=== PATIENT | female | born 1945 | race Caucasian/White ===

== ENCOUNTER 2017-07-07 12:08 | Inpatient (IN) | payer MEDICARE, MEDICAID, OTHER ==
[2017-07-07] MEDS: SOD CHLORIDE 0.9% 1,000 ML IV (14:45)
[2017-07-07 14:53] LABS: ADD MAN DIFF? NO
[2017-07-07 14:56] LABS: ABNORMAL IP MESSAGE 1; BASOPHILS % 0.3 % (0.0-2.0); EOSINOPHILS # 0.1 10^3/ul (0.0-0.5); EOSINOPHILS % 0.4 % (0.0-7.0); HEMATOCRIT 35.8 % (37.0-47.0); LYMPHOCYTES # 1.7 10^3/ul (0.8-2.9); LYMPHOCYTES % 13.1 % (15.0-51.0); MEAN CORPUSCULAR HEMOGLOBIN 29.8 pg (29.0-33.0); MEAN CORPUSCULAR HGB CONC 33.5 g/dl (32.0-37.0); MEAN CORPUSCULAR VOLUME 88.8 fl (82.0-101.0); MEAN PLATELET VOLUME 9.6 fl (7.4-10.4); MONOCYTE # 1.1 10^3/ul (0.3-0.9); MONOCYTES % 8.7 % (0.0-11.0); NEUTROPHIL # 8.4 10^3/ul (1.6-7.5); NEUTROPHILS % 64.8 % (39.0-77.0); NUCLEATED RED BLOOD CELLS # 0.1 10^3/ul (0.0-0.0); NUCLEATED RED BLOOD CELLS% 0.4 /100WBC (0.0-0.0); PLATELET COUNT 357 10^3/UL (140-415); RED BLOOD COUNT 4.03 10^6/ul (4.20-5.40); RED CELL DISTRIBUTION WIDTH 14.3 % (11.5-14.5)
[2017-07-07 15:05] LABS: ADD UMIC YES; UR ASCORBIC ACID NEGATIVE (NEGATIVE); UR BILIRUBIN (Dip) NEGATIVE (NEGATIVE); UR BLOOD (Dip) NEGATIVE (NEGATIVE); UR CLARITY TURBID (CLEAR); UR COLOR AMBER (YELLOW); UR GLUCOSE (Dip) NEGATIVE (NEGATIVE); UR KETONES (Dip) TRACE mg/dL (NEGATIVE); UR LEUKOCYTE ESTERASE (Dip) NEGATIVE Leu/ul (NEGATIVE); UR NITRITE (Dip) NEGATIVE (NEGATIVE); UR RBC 0 /HPF (0-5); UR SPECIFIC GRAVITY (Dip) 1.014 (1.003-1.030); UR TOTAL PROTEIN (Dip) NEGATIVE (NEGATIVE); UR UROBILINOGEN (Dip) NEGATIVE (NEGATIVE); UR WBC 16 /HPF (0-5)
[2017-07-07 15:10] LABS: INR 0.97
[2017-07-07] MEDS: ONDANSETRON 4 MG INJ IV ×2 (15:10→17:08)
[2017-07-07] MEDS: morphine 4 MG/ML VIAL IV (15:10)
[2017-07-07 15:11] LABS: PARTIAL THROMBOPLASTIN TIME 25.8 Sec (25.0-35.0)
[2017-07-07 15:12] LABS: ALANINE AMINOTRANSFERASE 23 IU/L (13-69); ALBUMIN 3.3 g/dl (3.3-4.9); ALKALINE PHOSPHATASE 96 IU/L (42-121); AMYLASE 63 U/L (11-123); ANION GAP 13 (8-16); ASPARTATE AMINO TRANSFERASE 19 IU/L (15-46); BILIRUBIN,INDIRECT 0.3 mg/dl (0-1.1); BILIRUBIN,TOTAL 0.3 mg/dl (0.2-1.3); BLOOD UREA NITROGEN 15 mg/dl (7-20); CALCIUM 9.7 mg/dl (8.4-10.2); CARBON DIOXIDE 26 mmol/L (21-31); CHLORIDE 103 mmol/L (97-110); GLUCOSE 109 mg/dl (70-220); LIPASE 125 U/L (23-300); SODIUM 138 mmol/L (135-144); TOTAL PROTEIN 7.4 g/dl (6.1-8.1)
[2017-07-07 15:26] LABS: TROPONIN-I < 0.012 ng/ml (0.00-0.12)
[2017-07-07] MEDS: CEFTRIAXONE 1 GM/50 ML (PMX) 50 ML IVPB (15:55)
[2017-07-07] MEDS: SOD CHLORIDE 0.9% 100 ML (16:54)
[2017-07-07] MEDS: IOHEXOL 300MG/ML 150 ML BTL (16:54)
[2017-07-07] MEDS: HYDROmorphONE 1 MG/ML SYG IV (17:08)
[2017-07-07] MEDS ORDERED: ONDANSETRON 4 MG INJ IV (17:30)
[2017-07-07] MEDS ORDERED: ACETAMINOPHEN 325 MG TAB PO ×2 (17:30→20:00)
[2017-07-07 19:11] LABS: CANCER ANTIGEN 125 52.3 U/ml (0.0-35.0)
[2017-07-07] MEDS ORDERED: VANCOMYCIN IV PER PHARMACY XX (20:00)
[2017-07-07] MEDS: morphine LIQ (10 MG/5 ML) CUP PO (22:36)
[2017-07-07] MEDS: DEXTROSE 5%-0.45% NACL 1,000 ML IV (22:38)
[2017-07-07] MEDS: VANCOMYCIN 1.75 GM in NS 500 ML IVPB (23:09)
[2017-07-07] MEDS: PIPER-TAZO 3.375 GM IV (PMX) 50 ML IVPB (23:43)
[2017-07-08] MEDS: HYDROmorphONE 0.5 MG/0.5 ML SYG IV ×3 (02:00→13:57)
[2017-07-08 05:13] LABS: ADD MAN DIFF? NO
[2017-07-08 05:17] LABS: WHITE BLOOD COUNT 12.3 10^3/ul (4.8-10.8)
[2017-07-08 05:17] LABS: ABNORMAL IP MESSAGE 1; BASOPHIL # 0.1 10^3/ul (0.0-0.1); BASOPHILS % 0.8 % (0.0-2.0); EOSINOPHILS # 0.1 10^3/ul (0.0-0.5); EOSINOPHILS % 1.1 % (0.0-7.0); HEMATOCRIT 29.4 % (37.0-47.0); HEMOGLOBIN 9.9 g/dl (12.0-16.0); LYMPHOCYTES # 1.9 10^3/ul (0.8-2.9); MEAN CORPUSCULAR HEMOGLOBIN 30.1 pg (29.0-33.0); MEAN CORPUSCULAR HGB CONC 33.7 g/dl (32.0-37.0); MEAN CORPUSCULAR VOLUME 89.4 fl (82.0-101.0); MONOCYTE # 1.3 10^3/ul (0.3-0.9); MONOCYTES % 10.3 % (0.0-11.0); NEUTROPHIL # 7.7 10^3/ul (1.6-7.5); NEUTROPHILS % 62.5 % (39.0-77.0); NUCLEATED RED BLOOD CELLS% 0.2 /100WBC (0.0-0.0); PLATELET COUNT 289 10^3/UL (140-415); RED BLOOD COUNT 3.29 10^6/ul (4.20-5.40); RED CELL DISTRIBUTION WIDTH 14.5 % (11.5-14.5)
[2017-07-08 05:40] LABS: ANION GAP 9 (8-16); BLOOD UREA NITROGEN 13 mg/dl (7-20); CALCIUM 8.6 mg/dl (8.4-10.2); CARBON DIOXIDE 24 mmol/L (21-31); CHLORIDE 108 mmol/L (97-110); CREATININE 0.71 mg/dl (0.44-1.00); GLUCOSE 105 mg/dl (70-220); POTASSIUM 3.5 mmol/L (3.5-5.1); SODIUM 137 mmol/L (135-144)
[2017-07-08 05:48] LABS: POSITIVE DIFF @See below
[2017-07-08] MEDS: morphine LIQ (10 MG/5 ML) CUP PO ×2 (05:56→23:30)
[2017-07-08] MEDS: PIPER-TAZO 3.375 GM IV (PMX) 50 ML IVPB ×4 (05:58→23:30)
[2017-07-08] MEDS: PANTOPRAZOLE (EC) 40 MG TAB PO (05:59)
[2017-07-08] MEDS: ONDANSETRON 4 MG INJ IV (07:51)
[2017-07-08] MEDS: DEXTROSE 5%-0.45% NACL 1,000 ML IV (11:39)
[2017-07-08] MEDS ORDERED: VANCOMYCIN 750 MG in DEXTROSE 5% 150 ML IVPB (12:00)
[2017-07-08] MEDS: VANCOMYCIN 750 MG in DEXTROSE 5% 150 ML IVPB (14:30)
[2017-07-08 15:00] LABS: RETICULOCYTE RBC 3.66
[2017-07-08 15:00] LABS: RETICULOCYTE COUNT # 0.104 X10^6 (0.020-0.110); RETICULOCYTE COUNT % 2.9 % (0.5-1.5)
[2017-07-08 15:24] LABS: IRON 11 ug/dl (35-150)
[2017-07-08 15:36] LABS: % IRON SATURATION 4 % SAT (22-52); TOTAL IRON BINDING CAPACITY 262 ug/dl (241-421)
[2017-07-08] MEDS: IOHEXOL 300MG/ML 150 ML BTL (18:45)
[2017-07-08] MEDS: SOD CHLORIDE 0.9% 100 ML (18:45)
[2017-07-09] MEDS: VANCOMYCIN 750 MG in DEXTROSE 5% 150 ML IVPB ×2 (01:42→15:43)
[2017-07-09] MEDS: DEXTROSE 5%-0.45% NACL 1,000 ML IV ×2 (05:20→22:00)
[2017-07-09] MEDS: PIPER-TAZO 3.375 GM IV (PMX) 50 ML IVPB ×4 (05:37→23:22)
[2017-07-09] MEDS: PANTOPRAZOLE (EC) 40 MG TAB PO (05:37)
[2017-07-09 05:52] LABS: WHITE BLOOD COUNT 11.1 10^3/ul (4.8-10.8)
[2017-07-09 05:52] LABS: ABNORMAL IP MESSAGE 1; HEMATOCRIT 30.2 % (37.0-47.0); HEMOGLOBIN 9.8 g/dl (12.0-16.0); MEAN CORPUSCULAR HEMOGLOBIN 29.8 pg (29.0-33.0); MEAN CORPUSCULAR HGB CONC 32.5 g/dl (32.0-37.0); MEAN CORPUSCULAR VOLUME 91.8 fl (82.0-101.0); MEAN PLATELET VOLUME 9.7 fl (7.4-10.4); PLATELET COUNT 388 10^3/UL (140-415); RED BLOOD COUNT 3.29 10^6/ul (4.20-5.40); RED CELL DISTRIBUTION WIDTH 14.9 % (11.5-14.5)
[2017-07-09 05:57] LABS: ADD MAN DIFF? YES; POSITIVE DIFF @See below
[2017-07-09] MEDS: morphine LIQ (10 MG/5 ML) CUP PO ×3 (06:15→17:51)
[2017-07-09 06:52] LABS: ANION GAP 11 (8-16); BLOOD UREA NITROGEN 15 mg/dl (7-20); CALCIUM 8.7 mg/dl (8.4-10.2); CARBON DIOXIDE 25 mmol/L (21-31); CHLORIDE 104 mmol/L (97-110); CREATININE 0.81 mg/dl (0.44-1.00); GLUCOSE 87 mg/dl (70-220); SODIUM 136 mmol/L (135-144)
[2017-07-09 09:23] LABS: LACTATE DEHYDROGENASE 531 IU/L (313-618)
[2017-07-09] MEDS: HYDROmorphONE 0.5 MG/0.5 ML SYG IV ×3 (09:28→21:50)
[2017-07-09 09:48] LABS: ANISOCYTOSIS 1+ (0-0); BAND NEUTROPHILS #M 0.2 10^3/ul (0.0-0.6); BAND NEUTROPHILS % (M) 2 % (0-4); EOSINOPHILS % (M) 4 % (0-7); GIANT THROMBO% (M) 3 % (0-0); LYMPHOCYTES #M 2.1 10^3/ul (0.8-2.9); LYMPHOCYTES % (M) 19 % (15-51); METAMYELOCYTES #M 0.1 10^3/ul (0.0-0.0); METAMYELOCYTES %M 1 % (0-0); MONOCYTE #M 0.9 10^3/ul (0.3-0.9); MONOCYTES % (M) 9 % (0-11); MYELOCYTES #M 0.2 10^3/ul (0.0-0.0); MYELOCYTES % (M) 2 % (0-0); PLATELET ESTIMATE NORMAL; POIKILOCYTOSIS 1+ (0-0); POLYCHROMASIA 3+ (0-0); REACTIVE LYMPHOCYTES #M 0.3 10^3/ul (0.0-0.0); REACTIVE LYMPHOCYTES% (M) 3 % (0-0); SEG NEUT #M 6.7 10^3/ul (1.7-7.5); SEGMENTED NEUTROPHILS (M) % 60 % (39-77); SMUDGE%M 4 % (0-0)
[2017-07-09 10:05] LABS: FERRITIN 33.2 ng/ml (11.1-264.0)
[2017-07-09 10:36] LABS: FOLATE 15.9 ng/ml (2.8-20.0)
[2017-07-09] MEDS: LIDOCAINE 1% (MPF) 5 ML VIAL (10:55)
[2017-07-09 15:09] LABS: VANCOMYCIN,TROUGH 14.8 ug/ml (10.0-20.0)
[2017-07-09 15:48] LABS: HIV 1&2 ANTIBODY NEGATIVE (NEGATIVE)
[2017-07-09] MEDS: SOD FERRIC GLUC COMPLX 125 MG in SOD CHLORIDE 0.9% 100 ML IVPB (23:22)
[2017-07-10] MEDS: VANCOMYCIN 750 MG in DEXTROSE 5% 150 ML IVPB ×2 (02:07→13:49)
[2017-07-10] MEDS: HYDROmorphONE 0.5 MG/0.5 ML SYG IV ×3 (04:17→20:39)
[2017-07-10] MEDS: PIPER-TAZO 3.375 GM IV (PMX) 50 ML IVPB ×3 (05:53→17:52)
[2017-07-10] MEDS: DEXTROSE 5%-0.45% NACL 1,000 ML IV (05:54)
[2017-07-10] MEDS: PANTOPRAZOLE (EC) 40 MG TAB PO (05:57)
[2017-07-10] MEDS: INFLUENZA VIRUS VACCINE 0.5 ML (DISPENSING) IM* (09:17)
[2017-07-10 09:21] LABS: OCCULT BLOOD STOOL POSITIVE (NEGATIVE)
[2017-07-10 14:36] LABS: HAPTOGLOBIN 339 mg/dL (43-212)
[2017-07-10] MEDS: SOD FERRIC GLUC COMPLX 125 MG in SOD CHLORIDE 0.9% 100 ML IVPB (22:01)
[2017-07-11] MEDS: PIPER-TAZO 3.375 GM IV (PMX) 50 ML IVPB ×5 (00:24→23:50)
[2017-07-11] MEDS: VANCOMYCIN 750 MG in DEXTROSE 5% 150 ML IVPB ×2 (01:06→14:13)
[2017-07-11] MEDS: HYDROmorphONE 0.5 MG/0.5 ML SYG IV ×4 (02:55→17:57)
[2017-07-11] MEDS: PANTOPRAZOLE (EC) 40 MG TAB PO (05:46)
[2017-07-11] MEDS: HYDROCODONE/APAP (5/325) TAB PO ×2 (05:51→12:48)
[2017-07-11] MEDS: morphine LIQ (10 MG/5 ML) CUP PO ×2 (15:45→20:03)
[2017-07-11] MEDS: SOD FERRIC GLUC COMPLX 125 MG in SOD CHLORIDE 0.9% 100 ML IVPB (21:16)
[2017-07-12] MEDS: VANCOMYCIN 750 MG in DEXTROSE 5% 150 ML IVPB ×2 (02:00→15:47)
[2017-07-12] MEDS: morphine LIQ (10 MG/5 ML) CUP PO ×2 (03:04→07:19)
[2017-07-12] MEDS: PIPER-TAZO 3.375 GM IV (PMX) 50 ML IVPB ×3 (05:22→17:57)
[2017-07-12] MEDS: PANTOPRAZOLE (EC) 40 MG TAB PO (05:26)
[2017-07-12 05:55] LABS: ADD MAN DIFF? NO
[2017-07-12 06:21] LABS: WHITE BLOOD COUNT 8.9 10^3/ul (4.8-10.8)
[2017-07-12 06:21] LABS: ABNORMAL IP MESSAGE 1; BASOPHIL # 0.1 10^3/ul (0.0-0.1); EOSINOPHILS # 0.2 10^3/ul (0.0-0.5); EOSINOPHILS % 1.7 % (0.0-7.0); HEMATOCRIT 28.4 % (37.0-47.0); HEMOGLOBIN 9.1 g/dl (12.0-16.0); LYMPHOCYTES # 1.9 10^3/ul (0.8-2.9); LYMPHOCYTES % 21.3 % (15.0-51.0); MEAN CORPUSCULAR HEMOGLOBIN 29.7 pg (29.0-33.0); MEAN CORPUSCULAR VOLUME 92.8 fl (82.0-101.0); MEAN PLATELET VOLUME 9.9 fl (7.4-10.4); MONOCYTE # 0.8 10^3/ul (0.3-0.9); MONOCYTES % 8.8 % (0.0-11.0); NEUTROPHIL # 5.5 10^3/ul (1.6-7.5); NEUTROPHILS % 62.1 % (39.0-77.0); PLATELET COUNT 407 10^3/UL (140-415); RED BLOOD COUNT 3.06 10^6/ul (4.20-5.40); RED CELL DISTRIBUTION WIDTH 15.4 % (11.5-14.5)
[2017-07-12 06:47] LABS: POSITIVE DIFF @See below
[2017-07-12 06:56] LABS: ANION GAP 12 (8-16); BLOOD UREA NITROGEN 8 mg/dl (7-20); CALCIUM 8.7 mg/dl (8.4-10.2); CARBON DIOXIDE 24 mmol/L (21-31); CHLORIDE 108 mmol/L (97-110); CREATININE 0.76 mg/dl (0.44-1.00); GLUCOSE 89 mg/dl (70-220); POTASSIUM 3.9 mmol/L (3.5-5.1); SODIUM 140 mmol/L (135-144)
[2017-07-12] MEDS: HYDROCODONE/APAP (5/325) TAB PO ×2 (08:16→12:19)
[2017-07-12] MEDS: HYDROmorphONE 2 MG TAB PO ×2 (09:11→17:57)
[2017-07-12 15:25] LABS: VANCOMYCIN,TROUGH 15.2 ug/ml (10.0-20.0)
[2017-07-13] MEDS: PIPER-TAZO 3.375 GM IV (PMX) 50 ML IVPB ×4 (00:27→18:56)
[2017-07-13] MEDS: VANCOMYCIN 750 MG in DEXTROSE 5% 150 ML IVPB ×2 (02:06→15:01)
[2017-07-13] MEDS: PANTOPRAZOLE (EC) 40 MG TAB PO (05:18)
[2017-07-13] MEDS: HYDROmorphONE 2 MG TAB PO ×3 (05:18→18:56)
[2017-07-13] MEDS: HYDROCODONE/APAP (5/325) TAB PO ×2 (06:15→11:01)
[2017-07-13] MEDS: morphine LIQ (10 MG/5 ML) CUP PO (15:10)
[2017-07-13 19:41] LABS: NIL 0.14 IU/mL; QUANTIFERON(R)-TB GOLD NEGATIVE (NEGATIVE); TB-NIL <0.00 IU/mL
[2017-07-14] MEDS: PIPER-TAZO 3.375 GM IV (PMX) 50 ML IVPB ×3 (00:21→12:06)
[2017-07-14] MEDS: HYDROmorphONE 2 MG TAB PO ×4 (00:22→16:56)
[2017-07-14] MEDS: HYDROCODONE/APAP (5/325) TAB PO ×4 (01:43→20:04)
[2017-07-14] MEDS: VANCOMYCIN 750 MG in DEXTROSE 5% 150 ML IVPB ×2 (01:43→13:40)
[2017-07-14 05:27] LABS: ADD MAN DIFF? NO
[2017-07-14 05:30] LABS: WHITE BLOOD COUNT 7.5 10^3/ul (4.8-10.8)
[2017-07-14 05:30] LABS: BASOPHIL # 0.1 10^3/ul (0.0-0.1); BASOPHILS % 0.9 % (0.0-2.0); EOSINOPHILS # 0.2 10^3/ul (0.0-0.5); EOSINOPHILS % 2.7 % (0.0-7.0); HEMATOCRIT 26.3 % (37.0-47.0); HEMOGLOBIN 8.5 g/dl (12.0-16.0); LYMPHOCYTES # 1.9 10^3/ul (0.8-2.9); LYMPHOCYTES % 24.7 % (15.0-51.0); MEAN CORPUSCULAR HEMOGLOBIN 30.1 pg (29.0-33.0); MEAN CORPUSCULAR HGB CONC 32.3 g/dl (32.0-37.0); MEAN CORPUSCULAR VOLUME 93.3 fl (82.0-101.0); MEAN PLATELET VOLUME 9.6 fl (7.4-10.4); MONOCYTE # 0.7 10^3/ul (0.3-0.9); MONOCYTES % 9.7 % (0.0-11.0); NEUTROPHIL # 4.4 10^3/ul (1.6-7.5); NEUTROPHILS % 58.4 % (39.0-77.0); PLATELET COUNT 412 10^3/UL (140-415); RED BLOOD COUNT 2.82 10^6/ul (4.20-5.40); RED CELL DISTRIBUTION WIDTH 15.9 % (11.5-14.5)
[2017-07-14 06:03] LABS: ANION GAP 11 (8-16); BLOOD UREA NITROGEN 10 mg/dl (7-20); CALCIUM 8.9 mg/dl (8.4-10.2); CARBON DIOXIDE 27 mmol/L (21-31); CHLORIDE 105 mmol/L (97-110); CREATININE 0.83 mg/dl (0.44-1.00); GLUCOSE 93 mg/dl (70-220); POTASSIUM 3.8 mmol/L (3.5-5.1); SODIUM 139 mmol/L (135-144)
[2017-07-14] MEDS: PANTOPRAZOLE (EC) 40 MG TAB PO (06:06)
[2017-07-14 13:57] LABS: CRYPTOCOCCAL ANTIGEN - SOURCE Serum
[2017-07-14] MEDS: CEFAZOLIN 1 GM/50 ML (PMX) 50 ML IVPB (22:06)
[2017-07-15] MEDS: HYDROCODONE/APAP (5/325) TAB PO ×4 (03:28→17:25)
[2017-07-15] MEDS: CEFAZOLIN 1 GM/50 ML (PMX) 50 ML IVPB ×2 (05:30→13:12)
[2017-07-15] MEDS: PANTOPRAZOLE (EC) 40 MG TAB PO (05:30)
[2017-07-15] MEDS: HYDROmorphONE 2 MG TAB PO ×2 (05:37→16:30)
[2017-07-15 17:02] LABS: PROCALCITONIN <0.10 ng/mL (<0.10)
[2017-07-15] MEDS: FUROSEMIDE 20 MG TAB PO (21:20)
[2017-07-16] MEDS: CEFAZOLIN 1 GM/50 ML (PMX) 50 ML IVPB ×2 (00:14→06:11)
[2017-07-16 05:31] LABS: WHITE BLOOD COUNT 6.4 10^3/ul (4.8-10.8)
[2017-07-16 05:31] LABS: ADD MAN DIFF? NO; BASOPHIL # 0.1 10^3/ul (0.0-0.1); BASOPHILS % 1.4 % (0.0-2.0); EOSINOPHILS # 0.2 10^3/ul (0.0-0.5); EOSINOPHILS % 2.4 % (0.0-7.0); HEMATOCRIT 31.8 % (37.0-47.0); HEMOGLOBIN 10.1 g/dl (12.0-16.0); LYMPHOCYTES # 1.2 10^3/ul (0.8-2.9); LYMPHOCYTES % 19.3 % (15.0-51.0); MEAN CORPUSCULAR HEMOGLOBIN 29.4 pg (29.0-33.0); MEAN CORPUSCULAR HGB CONC 31.8 g/dl (32.0-37.0); MEAN CORPUSCULAR VOLUME 92.4 fl (82.0-101.0); MEAN PLATELET VOLUME 9.5 fl (7.4-10.4); MONOCYTE # 0.7 10^3/ul (0.3-0.9); MONOCYTES % 11.1 % (0.0-11.0); NEUTROPHIL # 4.1 10^3/ul (1.6-7.5); NEUTROPHILS % 63.9 % (39.0-77.0); PLATELET COUNT 406 10^3/UL (140-415); RED BLOOD COUNT 3.44 10^6/ul (4.20-5.40); RED CELL DISTRIBUTION WIDTH 16.3 % (11.5-14.5)
[2017-07-16] MEDS: HYDROmorphONE 0.5 MG/0.5 ML SYG IV (06:08)
[2017-07-16] MEDS: PANTOPRAZOLE (EC) 40 MG TAB PO (06:08)
[2017-07-16 06:12] LABS: ANION GAP 15 (8-16); BLOOD UREA NITROGEN 11 mg/dl (7-20); CALCIUM 9.3 mg/dl (8.4-10.2); CARBON DIOXIDE 28 mmol/L (21-31); CHLORIDE 103 mmol/L (97-110); CREATININE 0.69 mg/dl (0.44-1.00); GLUCOSE 90 mg/dl (70-220); POTASSIUM 3.6 mmol/L (3.5-5.1); SODIUM 142 mmol/L (135-144)
[2017-07-16] MEDS: HYDROCODONE/APAP (5/325) TAB PO ×3 (07:22→14:56)
[2017-07-16] MEDS: FUROSEMIDE 20 MG TAB PO (09:00)
[2017-07-16] MEDS: CEPHALEXIN 500 MG CAP PO (13:45)
== END 2017-07-16 16:15 | disposition home or self-care (01) | DRG 607 ==
LOC: MS1 18:44 → E/R 12:08 → MS1 17:09
PROC: 0WB63ZX Excision of Neck, Percutaneous Approach, Diagnostic (ICD-10-PCS; principal; 2017-07-09)
DX: R22.1 Localized swelling, mass and lump, neck (principal); I10 Essential (primary) hypertension; D50.9 Iron deficiency anemia, unspecified; F17.200 Nicotine dependence, unspecified, uncomplicated; I25.10 Atherosclerotic heart disease of native coronary artery without angina pectoris; Z87.11 Personal history of peptic ulcer disease; R97.1 Elevated cancer antigen 125 [CA 125]; R59.0 Localized enlarged lymph nodes; N83.202 Unspecified ovarian cyst, left side
CPT/HCPCS: 36415; 70491; 71010; 71260; 72196; 74177; 76856; 76942; 80048; 80053; 80202; 81001; 82150; 82270; 82607; 82728; 82746; 83010; 83540; 83615; 83690; 84145; 84484; 85025; 85045; 85610; 85730; 86304; 86480; 86635; 86641; 86703; 86850; 86900; 86901; 87040; 87070; 87075; 87086; 87102; 87116; 88104; 88305; 90686; 93005; 96374; 96375; 99285-25

== ENCOUNTER 2018-02-10 09:16 | Inpatient (IN) | payer OTHER, MEDICAID, MEDICARE ==
[2018-02-10] MEDS: ONDANSETRON 4 MG INJ IV ×3 (09:44→21:15)
[2018-02-10] MEDS: HYDROmorphONE 1 MG/ML SYG IV (09:44)
[2018-02-10] MEDS: SOD CHLORIDE 0.9% 1,000 ML IV ×3 (09:44→19:59)
[2018-02-10 09:47] LABS: ADD MAN DIFF? NO
[2018-02-10 09:51] LABS: WHITE BLOOD COUNT 11.7 10^3/ul (4.8-10.8)
[2018-02-10 09:51] LABS: BASOPHIL # 0.1 10^3/ul (0.0-0.1); BASOPHILS % 0.4 % (0.0-2.0); EOSINOPHILS % 0.2 % (0.0-7.0); HEMATOCRIT 53.2 % (37.0-47.0); HEMOGLOBIN 17.2 g/dl (12.0-16.0); LYMPHOCYTES # 0.8 10^3/ul (0.8-2.9); LYMPHOCYTES % 6.6 % (15.0-51.0); MEAN CORPUSCULAR HEMOGLOBIN 30.7 pg (29.0-33.0); MEAN CORPUSCULAR HGB CONC 32.3 g/dl (32.0-37.0); MEAN PLATELET VOLUME 10.9 fl (7.4-10.4); MONOCYTE # 0.9 10^3/ul (0.3-0.9); MONOCYTES % 7.7 % (0.0-11.0); NEUTROPHIL # 9.9 10^3/ul (1.6-7.5); NEUTROPHILS % 84.4 % (39.0-77.0); PLATELET COUNT 194 10^3/UL (140-415); RED CELL DISTRIBUTION WIDTH 14.2 % (11.5-14.5)
[2018-02-10 10:19] LABS: INR 0.85; PROTIME 11.7 Sec (11.9-14.9); PT RATIO 0.9
[2018-02-10 10:20] LABS: PARTIAL THROMBOPLASTIN TIME 24.1 Sec (25.0-35.0)
[2018-02-10 10:25] LABS: ALANINE AMINOTRANSFERASE 14 IU/L (13-69); ALBUMIN 4.1 g/dl (3.3-4.9); ALBUMIN/GLOBULIN RATIO 1.36; ALKALINE PHOSPHATASE 105 IU/L (42-121); ANION GAP 12 (8-16); ASPARTATE AMINO TRANSFERASE 23 IU/L (15-46); BILIRUBIN,INDIRECT 0.8 mg/dl (0-1.1); BILIRUBIN,TOTAL 0.8 mg/dl (0.2-1.3); BLOOD UREA NITROGEN 21 mg/dl (7-20); CALCIUM 9.5 mg/dl (8.4-10.2); CARBON DIOXIDE 22 mmol/L (21-31); CHLORIDE 112 mmol/L (97-110); CREATININE 0.78 mg/dl (0.44-1.00); GLUCOSE 106 mg/dl (70-220); POTASSIUM 4.1 mmol/L (3.5-5.1); SODIUM 142 mmol/L (135-144); TOTAL PROTEIN 7.1 g/dl (6.1-8.1)
[2018-02-10] MEDS: SOD CHLORIDE 0.9% 100 ML (11:18)
[2018-02-10] MEDS: IODIXANOL LOCM 100 ML BTL (11:19)
[2018-02-10] MEDS: morphine 4 MG/ML VIAL IV ×2 (12:34→16:09)
[2018-02-10] MEDS ORDERED: ONDANSETRON 4 MG INJ IV (14:00)
[2018-02-10] MEDS ORDERED: ACETAMINOPHEN 325 MG TAB PO (14:00)
[2018-02-10] MEDS: ERTAPENEM SODIUM 1 GM in SOD CHLORIDE 0.9% 100 ML IVPB (14:43)
[2018-02-10] MEDS ORDERED: NACL 0.9% 3 ML SYG IV (20:00)
[2018-02-10] MEDS: morphine 2 MG INJ IV (20:29)
[2018-02-10] MEDS: CEFTRIAXONE 1 GM/50 ML (PMX) 50 ML IVPB (22:10)
[2018-02-11] MEDS: morphine 2 MG INJ IV ×5 (01:41→18:18)
[2018-02-11] MEDS: SOD CHLORIDE 0.9% 1,000 ML IV ×2 (05:59→15:32)
[2018-02-11 07:28] LABS: ADD MAN DIFF? NO
[2018-02-11 07:34] LABS: BASOPHILS % 0.4 % (0.0-2.0); EOSINOPHILS # 0.2 10^3/ul (0.0-0.5); EOSINOPHILS % 1.8 % (0.0-7.0); HEMATOCRIT 47.2 % (37.0-47.0); HEMOGLOBIN 14.7 g/dl (12.0-16.0); MEAN CORPUSCULAR HGB CONC 31.1 g/dl (32.0-37.0); MEAN CORPUSCULAR VOLUME 99.6 fl (82.0-101.0); MEAN PLATELET VOLUME 12.3 fl (7.4-10.4); MONOCYTE # 0.9 10^3/ul (0.3-0.9); MONOCYTES % 9.7 % (0.0-11.0); NEUTROPHIL # 6.9 10^3/ul (1.6-7.5); NEUTROPHILS % 76.8 % (39.0-77.0); RED BLOOD COUNT 4.74 10^6/ul (4.20-5.40); RED CELL DISTRIBUTION WIDTH 13.9 % (11.5-14.5)
[2018-02-11 07:42] LABS: HEMOGLOBIN A1C 5.3 % (0-5.9)
[2018-02-11 07:44] LABS: PLATELET COUNT 138 10^3/UL (140-415); POSITIVE DIFF @See below
[2018-02-11 07:51] LABS: ALANINE AMINOTRANSFERASE 23 IU/L (13-69); ALBUMIN 3.2 g/dl (3.3-4.9); ALBUMIN/GLOBULIN RATIO 1.28; ALKALINE PHOSPHATASE 73 IU/L (42-121); ANION GAP 8 (8-16); ASPARTATE AMINO TRANSFERASE 24 IU/L (15-46); BILIRUBIN,INDIRECT 0.7 mg/dl (0-1.1); BILIRUBIN,TOTAL 0.7 mg/dl (0.2-1.3); BLOOD UREA NITROGEN 15 mg/dl (7-20); CALCIUM 8.5 mg/dl (8.4-10.2); CARBON DIOXIDE 23 mmol/L (21-31); CHLORIDE 114 mmol/L (97-110); CREATININE 0.72 mg/dl (0.44-1.00); GLUCOSE 98 mg/dl (70-220); POTASSIUM 3.9 mmol/L (3.5-5.1); SODIUM 141 mmol/L (135-144); TOTAL PROTEIN 5.7 g/dl (6.1-8.1)
[2018-02-11] MEDS: ENOXAPARIN 30 MG/0.3 ML SYG SC (09:00)
[2018-02-11] MEDS: CEFTRIAXONE 1 GM/50 ML (PMX) 50 ML IVPB (21:56)
[2018-02-12] MEDS: morphine 2 MG INJ IV ×5 (00:02→17:32)
[2018-02-12] MEDS: SOD CHLORIDE 0.9% 1,000 ML IV ×4 (01:59→21:59)
[2018-02-12 05:13] LABS: ADD MAN DIFF? NO
[2018-02-12 05:16] LABS: BASOPHIL # 0.1 10^3/ul (0.0-0.1); BASOPHILS % 0.8 % (0.0-2.0); EOSINOPHILS # 0.1 10^3/ul (0.0-0.5); HEMATOCRIT 44.5 % (37.0-47.0); LYMPHOCYTES # 1.2 10^3/ul (0.8-2.9); MEAN CORPUSCULAR HEMOGLOBIN 31.5 pg (29.0-33.0); MEAN CORPUSCULAR HGB CONC 31.5 g/dl (32.0-37.0); MONOCYTE # 0.6 10^3/ul (0.3-0.9); MONOCYTES % 9.9 % (0.0-11.0); NEUTROPHIL # 4.4 10^3/ul (1.6-7.5); NEUTROPHILS % 68.7 % (39.0-77.0); PLATELET COUNT 151 10^3/UL (140-415); RED BLOOD COUNT 4.45 10^6/ul (4.20-5.40); RED CELL DISTRIBUTION WIDTH 13.5 % (11.5-14.5)
[2018-02-12 05:16] LABS: WHITE BLOOD COUNT 6.4 10^3/ul (4.8-10.8)
[2018-02-12 05:40] LABS: ANION GAP 8 (8-16); BLOOD UREA NITROGEN 9 mg/dl (7-20); CALCIUM 8.5 mg/dl (8.4-10.2); CARBON DIOXIDE 25 mmol/L (21-31); CHLORIDE 110 mmol/L (97-110); GLUCOSE 78 mg/dl (70-220); POTASSIUM 3.8 mmol/L (3.5-5.1); SODIUM 139 mmol/L (135-144)
[2018-02-12] MEDS: CEFTRIAXONE 1 GM/50 ML (PMX) 50 ML IVPB (21:37)
[2018-02-13] MEDS: morphine 2 MG INJ IV ×5 (01:01→18:21)
[2018-02-13] MEDS: SOD CHLORIDE 0.9% 1,000 ML IV ×4 (01:05→22:22)
[2018-02-13 05:02] LABS: ADD MAN DIFF? NO
[2018-02-13 05:16] LABS: WHITE BLOOD COUNT 5.2 10^3/ul (4.8-10.8)
[2018-02-13 05:16] LABS: BASOPHILS % 0.8 % (0.0-2.0); EOSINOPHILS # 0.2 10^3/ul (0.0-0.5); EOSINOPHILS % 3.1 % (0.0-7.0); HEMATOCRIT 42.2 % (37.0-47.0); HEMOGLOBIN 13.6 g/dl (12.0-16.0); LYMPHOCYTES # 1.1 10^3/ul (0.8-2.9); LYMPHOCYTES % 20.3 % (15.0-51.0); MEAN CORPUSCULAR HEMOGLOBIN 31.5 pg (29.0-33.0); MEAN CORPUSCULAR HGB CONC 32.2 g/dl (32.0-37.0); MEAN CORPUSCULAR VOLUME 97.7 fl (82.0-101.0); MEAN PLATELET VOLUME 10.9 fl (7.4-10.4); MONOCYTE # 0.6 10^3/ul (0.3-0.9); MONOCYTES % 11.3 % (0.0-11.0); NEUTROPHIL # 3.3 10^3/ul (1.6-7.5); NEUTROPHILS % 64.1 % (39.0-77.0); PLATELET COUNT 153 10^3/UL (140-415); RED BLOOD COUNT 4.32 10^6/ul (4.20-5.40); RED CELL DISTRIBUTION WIDTH 13.1 % (11.5-14.5)
[2018-02-13 05:34] LABS: ANION GAP 8 (8-16); BLOOD UREA NITROGEN 6 mg/dl (7-20); CALCIUM 8.5 mg/dl (8.4-10.2); CARBON DIOXIDE 23 mmol/L (21-31); CHLORIDE 113 mmol/L (97-110); CREATININE 0.56 mg/dl (0.44-1.00); GLUCOSE 109 mg/dl (70-220); POTASSIUM 3.7 mmol/L (3.5-5.1); SODIUM 140 mmol/L (135-144)
[2018-02-13] MEDS: CEFTRIAXONE 1 GM/50 ML (PMX) 50 ML IVPB (21:37)
[2018-02-14] MEDS: morphine 2 MG INJ IV ×5 (00:07→19:59)
[2018-02-14] MEDS: BISACODYL (EC) 5 MG TAB PO (09:53)
[2018-02-14] MEDS: CEFTRIAXONE 1 GM/50 ML (PMX) 50 ML IVPB (22:06)
[2018-02-15] MEDS: morphine 2 MG INJ IV ×3 (02:06→10:26)
[2018-02-15 05:11] LABS: ADD MAN DIFF? NO
[2018-02-15 05:15] LABS: WHITE BLOOD COUNT 4.5 10^3/ul (4.8-10.8)
[2018-02-15 05:15] LABS: BASOPHIL # 0.1 10^3/ul (0.0-0.1); BASOPHILS % 1.1 % (0.0-2.0); EOSINOPHILS # 0.2 10^3/ul (0.0-0.5); EOSINOPHILS % 4.2 % (0.0-7.0); HEMATOCRIT 42.6 % (37.0-47.0); LYMPHOCYTES % 22.7 % (15.0-51.0); MEAN CORPUSCULAR HEMOGLOBIN 30.7 pg (29.0-33.0); MEAN CORPUSCULAR HGB CONC 32.9 g/dl (32.0-37.0); MEAN CORPUSCULAR VOLUME 93.4 fl (82.0-101.0); MEAN PLATELET VOLUME 10.7 fl (7.4-10.4); MONOCYTE # 0.6 10^3/ul (0.3-0.9); MONOCYTES % 12.1 % (0.0-11.0); NEUTROPHIL # 2.7 10^3/ul (1.6-7.5); NEUTROPHILS % 59.5 % (39.0-77.0); PLATELET COUNT 181 10^3/UL (140-415); RED BLOOD COUNT 4.56 10^6/ul (4.20-5.40); RED CELL DISTRIBUTION WIDTH 13.1 % (11.5-14.5)
[2018-02-15 06:05] LABS: ANION GAP 8 (8-16); BLOOD UREA NITROGEN 8 mg/dl (7-20); CALCIUM 8.8 mg/dl (8.4-10.2); CARBON DIOXIDE 26 mmol/L (21-31); CHLORIDE 109 mmol/L (97-110); CREATININE 0.54 mg/dl (0.44-1.00); GLUCOSE 91 mg/dl (70-220); POTASSIUM 3.5 mmol/L (3.5-5.1); SODIUM 139 mmol/L (135-144)
== END 2018-02-15 13:12 | disposition home or self-care (01) | DRG 392 ==
LOC: E/R 09:16 → MS1 02-11 17:30 → MS4 13:39
DX: K57.32 Diverticulitis of large intestine without perforation or abscess without bleeding (principal); I10 Essential (primary) hypertension; E11.9 Type 2 diabetes mellitus without complications; F17.210 Nicotine dependence, cigarettes, uncomplicated; K59.00 Constipation, unspecified; Z79.4 Long term (current) use of insulin
CPT/HCPCS: 36415; 74177; 80048; 80053; 83036; 85025; 85610; 85730; 96361; 96374; 96375; 96376; 99285-25

== ENCOUNTER 2018-10-13 11:34 | Emergency (ER) | payer OTHER, MEDICAID, MEDICARE ==
[2018-10-13 12:57] LABS: ADD MAN DIFF? NO
[2018-10-13 13:04] LABS: BASOPHIL # 0.1 10^3/ul (0.0-0.1); EOSINOPHILS # 0.1 10^3/ul (0.0-0.5); HEMATOCRIT 47.9 % (37.0-47.0); HEMOGLOBIN 15.5 g/dl (12.0-16.0); LYMPHOCYTES # 2.1 10^3/ul (0.8-2.9); LYMPHOCYTES % 35.7 % (15.0-51.0); MEAN CORPUSCULAR HEMOGLOBIN 30.8 pg (29.0-33.0); MEAN CORPUSCULAR HGB CONC 32.4 g/dl (32.0-37.0); MEAN CORPUSCULAR VOLUME 95.2 fl (82.0-101.0); MEAN PLATELET VOLUME 10.2 fl (7.4-10.4); MONOCYTE # 0.6 10^3/ul (0.3-0.9); MONOCYTES % 10.2 % (0.0-11.0); NEUTROPHILS % 50.4 % (39.0-77.0); PLATELET COUNT 192 10^3/UL (140-415); RED BLOOD COUNT 5.03 10^6/ul (4.20-5.40); RED CELL DISTRIBUTION WIDTH 13.8 % (11.5-14.5)
[2018-10-13 13:05] LABS: Allen Test ACCEPTAB; Arterial Blood Gas Oxygen Sat 94.5 mmHG (95.0-100.0); Arterial COHb 3.2 % (0.0-3.0); Arterial Fraction of Oxyhgb 91.3 % (93.0-99.0); Arterial HCO3 21.6 mmol/L (22.0-26.0); Arterial MetHb 0.2 % (0.0-1.5); Arterial pCO2 41.3 mmhg (35-45); MODE ROOM AIR; Site Right Radial
[2018-10-13 13:21] LABS: ALANINE AMINOTRANSFERASE 11 IU/L (13-69); ALBUMIN 3.9 g/dl (3.3-4.9); ALBUMIN/GLOBULIN RATIO 1.39; ALKALINE PHOSPHATASE 91 IU/L (42-121); ANION GAP 13 (5-13); ASPARTATE AMINO TRANSFERASE 20 IU/L (15-46); BILIRUBIN,INDIRECT 0.4 mg/dl (0-1.1); BILIRUBIN,TOTAL 0.4 mg/dl (0.2-1.3); BLOOD UREA NITROGEN 21 mg/dl (7-20); CALCIUM 9.4 mg/dl (8.4-10.2); CARBON DIOXIDE 23 mmol/L (21-31); CHLORIDE 112 mmol/L (97-110); CREATININE 0.81 mg/dl (0.44-1.00); GLUCOSE 85 mg/dl (70-220); LIPASE 172 U/L (23-300); POTASSIUM 3.9 mmol/L (3.5-5.1); SODIUM 148 mmol/L (135-144); TOTAL PROTEIN 6.7 g/dl (6.1-8.1)
[2018-10-13 13:23] LABS: INR 0.84; PARTIAL THROMBOPLASTIN TIME 23.8 Sec (23.0-35.0); PROTIME 11.6 Sec (11.9-14.9); PT RATIO 0.9
[2018-10-13 13:34] LABS: B-TYPE NATRIURETIC PEPTIDE 59 PG/ML (0-125); TROPONIN-I < 0.012 ng/ml (0.000-0.120)
[2018-10-13] MEDS: SOD CHLORIDE 0.9% 500 ML IV (13:48)
[2018-10-13] MEDS: KETOROLAC 15 MG INJ IV (13:48)
[2018-10-13] MEDS: SOD CHLORIDE 0.9% 100 ML (14:36)
[2018-10-13] MEDS: IOHEXOL 350MG/ML 50 ML BTL (14:37)
[2018-10-13] MEDS: IOHEXOL 100 ML (14:37)
[2018-10-13] MEDS: ASPIRIN 81 MG TAB PO ×3 (15:05→15:10)
[2018-10-13] MEDS: traMADol 50 MG TAB PO (17:22)
[2018-10-13] MEDS: ALBUTEROL 0.083% (NEB) 2.5 MG/3 ML AMP HHN (17:22)
[2018-10-13] MEDS ORDERED: OXYCODONE/ACETAMINOPHEN (5/325) TAB PO (20:00)
== END 2018-10-13 21:20 | disposition left against medical advice (07) ==
LOC: E/R 11:34
DX: I27.20 Pulmonary hypertension, unspecified (principal); E86.0 Dehydration; J44.9 Chronic obstructive pulmonary disease, unspecified; R06.02 Shortness of breath; Z87.891 Personal history of nicotine dependence
CPT/HCPCS: 36415; 36600; 70491; 71045; 71275; 80053; 82803; 83690; 83880; 84484; 85025; 85610; 85730; 93005; 94644; 96374; 99285-25